=== PATIENT | male | born 1945 | race Caucasian/White ===

== ENCOUNTER 2019-03-26 10:47 | Day surgery (SDC) | payer MEDICARE ==
[~2019-03-26] VITALS: Ht 179.1 cm; Wt 81.2 kg
[2019-03-26] MEDS ORDERED: LACTATED RINGERS 1,000 ML IV SCH (11:16)
[2019-03-26] MEDS ORDERED: OMEP40CA6 PO (11:21)
[2019-03-26] MEDS ORDERED: IRON TABLET PO (11:21)
[2019-03-26] MEDS ORDERED: LACT1CAP43 PO (11:21)
[2019-03-26] MEDS ORDERED: GLUC500T11 PO (11:21)
[2019-03-26] MEDS ORDERED: METO25TA35 PO (11:21)
[2019-03-26 11:43] VITALS: BP 133/80
[2019-03-26] MEDS ORDERED: MIDAZOLAM 1 MG/ML, 2ML ONE (12:25)
[2019-03-26] MEDS ORDERED: FENTANYL PF 250 MCG/5ML ONE (12:25)
[2019-03-26] MEDS ORDERED: SUGAMMADEX 200 MG/2 ML IVPush ONE (12:30)
[2019-03-26] MEDS ORDERED: PHENYLEPHRINE 10 MG/ML ONE (13:25)
[2019-03-26] MEDS ORDERED: ROCURONIUM 10 MG/ML,10ML ONE (13:25)
[2019-03-26] MEDS ORDERED: PROPOFOL 10 MG/ML, 20ML ONE (13:25)
[2019-03-26] MEDS ORDERED: ONDANSETRON 2MG/ML, 2ML ONE (13:25)
[2019-03-26] MEDS ORDERED: DEXAMETHASONE 4 MG/ML, 1ML ONE (13:25)
[2019-03-26] MEDS ORDERED: ACETAMINOPHEN 325 MG TABLET PO PRN (14:00)
[2019-03-26] MEDS ORDERED: HALOPERIDOL 5 MG/ML IV PRN (14:00)
[2019-03-26] MEDS ORDERED: FENTANYL PF 100 MCG/2ML IV PRN (14:00)
[2019-03-26] MEDS ORDERED: HYDROmorphone 2 MG/ML, 1ML IVPush PRN (14:00)
[2019-03-26] MEDS ORDERED: OXYcodone 5 MG/5 ML ORAL.SOL UDC PO PRN (14:00)
[2019-03-26] MEDS ORDERED: MEPERIDINE/PF 25MG/0.5ML IVPush PRN (14:00)
[2019-03-26] MEDS ORDERED: PROMETHAZINE 25 MG/ML, 1ML IV PRN (14:00)
[2019-03-26] MEDS ORDERED: hydrALAzine 20 MG/ML, 1ML IV PRN (14:00)
[2019-03-26] MEDS ORDERED: TEMPLATE NON-FORMULARY MED. (Omeprazole** 40 MG) PO SCH (21:00)
[2019-03-27] MEDS ORDERED: METOPROLOL TARTRATE 25 MG TABLET PO SCH (09:00)
[2019-03-27] MEDS ORDERED: TEMPLATE NON-FORMULARY MED. (Glucosamine Hcl** 500 MG) PO SCH (09:00)
[2019-03-27] MEDS ORDERED: IRON PO SCH (09:00)
[2019-03-27] MEDS ORDERED: [UNRECOGNIZED DRUG - REMARK] PO SCH (09:00)
== END 2019-03-26 16:10 | disposition home or self-care (01) ==
LOC: OUT 10:47
PROVIDERS: ATTEND Urology
DX: N20.0 Calculus of kidney (principal); K21.9 Gastro-esophageal reflux disease without esophagitis; N40.0 Benign prostatic hyperplasia without lower urinary tract symptoms; G83.24 Monoplegia of upper limb affecting left nondominant side; Z85.01 Personal history of malignant neoplasm of esophagus; Z88.0 Allergy status to penicillin; Z80.52 Family history of malignant neoplasm of bladder; Z87.891 Personal history of nicotine dependence; Z87.442 Personal history of urinary calculi
CPT/HCPCS: 50590; 93005; J1100; J2250; J2370; J2405; J2704; J3010; J7120